=== PATIENT | female | born 1965 | race African-American/Black ===

== ENCOUNTER 2016-08-27 11:02 | Emergency (ER) | payer OTHER ==
[~2016-08-27 11:02] MED LIST: LEVO125T5 PO
--- NOTE | 2016-08-27 11:48 | RAD ---
Right knee with patella, 4 views, 08/27/2016: History: Knee pain No fracture or dislocation is identified. There is mild spurring medially at the knee joint as well as at the patellofemoral articulation. The periarticular soft tissues are unremarkable. IMPRESSION: 1. Mild degenerative change. 2. No acute bony abnormality is detected.
[2016-08-27 11:55] VITALS: BP 147/79
[2016-08-27] MEDS ORDERED: NAPROXEN 500 MG TABLET PO STA (12:03)
[2016-08-27] MEDS ORDERED: HYDR-971 PO (12:10)
[2016-08-27] MEDS ORDERED: METH4TAB2 PO (12:10)
[2016-08-27] MEDS ORDERED: NAPR375T3 PO (12:10)
--- NOTE | 2016-08-27 12:11 | PHYS DOC ---
Past Medical History Past Medical History: Arthritis, Hypothyroid Past Surgical History: Hysterectomy Alcohol Use: Occasionally Drug Use: None Adult General Chief Complaint Chief Complaint: KNEE INJURY HPI HPI Patient is a 51 year old female with history of arthritis and hypothyroidism who presents today with moderate right knee pain generalized in nature worse on ambulation that began 3 weeks ago, patient denies any known injury. Review of Systems Review of Systems Constitutional: Denies fever or chills [] Musculoskeletal: Right knee pain Integument: Denies rash or skin lesions [] Neurologic: Denies headache, focal weakness or sensory changes [] Endocrine: Denies polyuria or polydipsia [] Allergies Allergies Allergies Coded Allergies Type Severity Reaction Last Updated Verified No Known Drug Allergies 09/18/15 No Physical Exam Physical Exam Constitutional: Well developed, well nourished, no acute distress, non-toxic appearance. [] Skin: Warm, dry, no erythema, no rash. [] Back: No tenderness, no CVA tenderness. [] Extremities: Right knee with no obvious edema and obvious ecchymosis, diffuse tenderness on palpation of right anterior knee. Full range of motion to the right knee, negative Jeannie sign negative Jeannie sign negative anterior- posterior drawer sign to the right knee. +2 right pedal pulse. Cap refill less than 2 seconds the right lower extremity. Sensation intact to the right lower extremity. Neurologic: Alert and oriented X 3, normal motor function, normal sensory function, no focal deficits noted. [] Psychologic: Affect normal, judgement normal, mood normal. [] Current Patient Data Vital Signs Vital Signs Date Time Temp Pulse Resp B/P Pulse Ox O2 Delivery O2 Flow Rate FiO2 08/27/16 11:55 97.8 102 18 97 Room Air 97.8 EKG EKG [] Radiology/Procedures Radiology/Procedures [] Course & Med Decision Making Course & Med Decision Making Pertinent Labs and Imaging studies reviewed. (See chart for details) Patient is in the ED with right knee pain for 3 weeks no known injury. Right knee x-rays interpreted by radiologist 4 views are noted for DJD of the right knee otherwise no acute findings. Immobilizer was applied to the right knee by the underwriting technician, neurovascular exam done by me is normal, cap refill < 2 seconds. Ice and elevation encouraged. Follow-up with ortho in one week. Note for work provided for 3 days. Dragon Disclaimer Dragon Disclaimer This electronic medical record was generated, in whole or in part, using a voice recognition dictation system. Departure Departure Impression: Primary Impression: DJD (degenerative joint disease) of knee Disposition: 01 HOME, SELF-CARE Condition: STABLE Referrals: LEE ANN ROSALES MD (PCP) LEONOR BERMUDEZ MD see her in the next 7 days Patient Instructions: Arthritis, Degenerative-Brief Additional Instructions: You were seen for right knee pain, your x-ray shows you have degenerative joint disease of the right knee. Wear the brace as tolerated, keep the knee iced and elevated as tolerated. Follow-up with the provided orthopedic doctor in a week if pain continues. Scripts Hydrocodone/Apap 5-325 ([place] 5-325 Tablet)1 Each Tablet1-2 Tab PO Q4-6HRS #14 TAB Prov:KODY OSWALD APRN 08/27/16 Naproxen 375 Mg Tablet1 Tab PO BID #60 TAB Ref 5 Prov:KODY OSWALD APRN 08/27/16 Methylprednisolone (Medrol)4 Mg Tab.ds.pk1 Pkg PO UD #1 PKG Prov:KODY OSWALD APRN 08/27/16 Problem Qualifiers Primary Impression: DJD (degenerative joint disease) of knee Osteoarthritis type: unspecified Laterality: right Qualified Code: M17.9 - Osteoarthritis of knee, unspecified KODY OSWALD APRN Aug 27, 2016 12:11
[2016-08-27] MEDS ORDERED: HYDROCODONE/APAP 5/325MG TABLET. PO ONE (12:15)
== END 2016-08-27 12:29 | disposition home or self-care (01) ==
LOC: ER 11:02
DX: M17.9 Osteoarthritis of knee, unspecified (principal); E03.9 Hypothyroidism, unspecified; Z90.710 Acquired absence of both cervix and uterus
CPT/HCPCS: 29505; 73564; 99284-25

== ENCOUNTER → 2016-11-19 | Outpatient (CLI) | payer OTHER ==
[~2016-11-19] MED LIST changes: +HYDR-971 PO; +METH4TAB2 PO; +NAPR375T3 PO
--- NOTE | 2016-11-19 16:15 | KCIC ---
PROCEDURE MR of the right knee HISTORY Acute pain since June 2016. Swelling. No known injury. TECHNIQUE Standard noncontrast images are obtained. COMPARISON None FINDINGS Mild signal irregularity along the undersurface of the medial meniscus and mild signal extending to the posterior root, compatible with a mild degenerative tear. No evidence of a lateral meniscal tear. The anterior and posterior cruciate ligaments are intact. Medial collateral ligament intact. Iliotibial band unremarkable. Fibular collateral ligament, biceps femoris tendon and popliteus tendon are intact. Extensor mechanism is intact. Small joint effusion. No evidence of osteochondral loose body. Trace fluid in the popliteal fossa. There is mild edema within the popliteus muscle. Severe chondromalacia at medial joint compartment. Minimal subchondral marrow edema at the medial femoral condyle. Severe chondromalacia at the patella. No aggressive bone destruction or acute fracture. IMPRESSION 1. Mild degenerative tear of the medial meniscus. 2. Primary osteoarthritis, most severe at the medial compartment and at the patella. Electronically signed by: Edmund Mullins MD (Nov 19, 2016 16:13:07)
== END | disposition home or self-care (01) ==
LOC: KCIC MRI 15:15
PROVIDERS: ATTEND Orthopaedic Surgery
DX: M25.561 Pain in right knee (principal)
CPT/HCPCS: 73721

== ENCOUNTER → 2016-12-23 | Outpatient (CLI) | payer OTHER ==
[2016-12-23 09:47] LABS: BASO # 0.1 x10^3/uL (0.0-0.2); BASO % 1 % (0-3); EOS % 0 % (0-3); HEMATOCRIT 35.3 % (36.0-47.0); LYMPH # 4.2 x10^3/uL (1.0-4.8); LYMPH % 43 % (24-48); MEAN CORPUSCULAR HEMOGLOBIN 29 pg (25-35); MEAN CORPUSCULAR HGB CONC 34 g/dL (31-37); MEAN CORPUSCULAR VOLUME 84 fL (79-100); MONO % 8 % (0-9); NEUT % 48 % (31-73); PLATELET COUNT 454 x10^3/uL (140-400); RED BLOOD COUNT 4.19 x10^6/uL (3.50-5.40); RED CELL DISTRIBUTION WIDTH 13.9 % (11.5-14.5); WHITE BLOOD COUNT 9.7 x10^3/uL (4.0-11.0)
[2016-12-23 09:49] LABS: % SAT IRON 17 % (15-34); IRON,SERUM 66 ug/dL (50-170)
[2016-12-23 09:59] LABS: FREE T4 1.51 ng/dL (0.76-1.46)
[2016-12-23 11:14] LABS: VITAMIN-B12 877 pg/mL (247-911)
[2016-12-23 11:26] LABS: FOLATE > 24.00 ng/ml (3.2-20.0)
== END | disposition home or self-care (01) ==
LOC: LAB 09:05
PROVIDERS: ATTEND Nurse Practitioner
DX: E03.9 Hypothyroidism, unspecified (principal); D64.9 Anemia, unspecified
CPT/HCPCS: 36415; 82607; 82728; 82746; 83540; 83550; 84439; 84443; 85027

== ENCOUNTER → 2017-01-22 | Outpatient (CLI) | payer OTHER ==
[2017-01-22 12:37] LABS: FREE T4 1.48 ng/dL (0.76-1.46)
== END | disposition home or self-care (01) ==
LOC: LAB 11:58
PROVIDERS: ATTEND Nurse Practitioner
DX: E03.9 Hypothyroidism, unspecified (principal)
CPT/HCPCS: 36415; 84439; 84443

== ENCOUNTER → 2017-03-25 | Outpatient (CLI) | payer OTHER ==
[2017-03-25 13:21] LABS: FREE T4 1.22 ng/dL (0.76-1.46)
== END | disposition home or self-care (01) ==
LOC: LAB 12:19
PROVIDERS: ATTEND Nurse Practitioner
DX: E03.9 Hypothyroidism, unspecified (principal)
CPT/HCPCS: 36415; 84439; 84443

== ENCOUNTER → 2017-06-12 | Outpatient (CLI) | payer OTHER ==
[~2017-06-12] MED LIST changes: +NAPR-695 PO; -NAPR375T3 PO
--- NOTE | 2017-06-12 12:32 | RAD ---
DATE: 06/12/2017. EXAM: DIGITAL SCREEN BILAT W/CAD. HISTORY: Routine mammographic screening. COMPARISON: 09/05/2015. This study was interpreted with the benefit of Computerized Aided Detection (CAD). FINDINGS: The breast parenchyma shows scattered fibroglandular densities. Breast parenchyma level B. There are new small circumscribed or partially obscured nodules laterally on the right CC view and inferiorly on the right MLO view. Other small nodules on the right appear stable and benign. Scattered calcifications are benign. There is no suspicious finding on the left. BI-RADS CATEGORY: 0 INCOMPLETE: NEEDS ADDITIONAL IMAGING EVALUATION AND/OR PRIOR MAMMOGRAMS FOR COMPARISON.. RECOMMENDED FOLLOW-UP: ADD ADDITIONAL IMAGING. Spot compression and sonography of new small nodules laterally on the right CC view and inferiorly on the right MLO view. See annotations. PQRS compliance statement: Patient information was entered into a reminder system with a target due date (now) for the next mammogram. Mammography is a sensitive method for finding small breast cancers, but it does not detect them all and is not a substitute for careful clinical examination. A negative mammogram does not negate a clinically suspicious finding and should not result in delay in biopsying a clinically suspicious abnormality. "Our facility is accredited by the [employer] Mammography Program."
== END | disposition home or self-care (01) ==
LOC: MAMMO 08:07
PROVIDERS: ATTEND Internal Medicine
DX: Z12.31 Encounter for screening mammogram for malignant neoplasm of breast (principal)
CPT/HCPCS: G0202; 77067

== ENCOUNTER → 2017-11-10 | Outpatient (CLI) | payer OTHER ==
[2017-11-10 15:00] LABS: ADD MAN DIFF? NO
[2017-11-10 15:16] LABS: BASO # 0.1 x10^3/uL (0.0-0.2); BASO % 1 % (0-3); EOS # 0.1 x10^3/uL (0.0-0.7); EOS % 1 % (0-3); HEMATOCRIT 34.3 % (36.0-47.0); HEMOGLOBIN 11.6 g/dL (12.0-15.5); LYMPH # 5.9 x10^3/uL (1.0-4.8); LYMPH % 50 % (24-48); MEAN CORPUSCULAR HEMOGLOBIN 30 pg (25-35); MEAN CORPUSCULAR HGB CONC 34 g/dL (31-37); MEAN CORPUSCULAR VOLUME 89 fL (79-100); MONO % 9 % (0-9); NEUT # 4.7 x10^3uL (1.8-7.7); NEUT % 40 % (31-73); PLATELET COUNT 382 x10^3/uL (140-400); RED BLOOD COUNT 3.85 x10^6/uL (3.50-5.40); RED CELL DISTRIBUTION WIDTH 14.2 % (11.5-14.5); WHITE BLOOD COUNT 11.8 x10^3/uL (4.0-11.0)
[2017-11-10 15:33] LABS: ALBUMIN 3.8 g/dL (3.4-5.0); ALBUMIN/GLOBULIN RATIO 0.8 (1.0-1.7); ALK PHOS 49 U/L (46-116); ALT (SGPT) 34 U/L (14-59); ANION GAP 9 (6-14); AST (SGOT) 25 U/L (15-37); BLOOD UREA NITROGEN 12 mg/dL (7-20); BUN/CREATININE RATIO 20 (6-20); CARBON DIOXIDE 27 mmol/L (21-32); CHLORIDE 104 mmol/L (98-107); CREATININE 0.6 mg/dL (0.6-1.0); GLUCOSE 88 mg/dL (70-99); POTASSIUM 3.2 mmol/L (3.5-5.1); SODIUM 140 mmol/L (136-145); TOTAL BILIRUBIN 0.2 mg/dL (0.2-1.0); TOTAL PROTEIN 8.3 g/dL (6.4-8.2)
[2017-11-10 15:44] LABS: THYROID STIM HORMONE (TSH) 4.331 uIU/mL (0.358-3.74)
== END | disposition home or self-care (01) ==
LOC: LAB 14:49
DX: I10 Essential (primary) hypertension (principal); E03.9 Hypothyroidism, unspecified
CPT/HCPCS: 36415; 80053; 84439; 84443; 85025

== ENCOUNTER → 2017-11-18 | Outpatient (CLI) | payer OTHER ==
[2017-11-18 11:41] LABS: ADD MAN DIFF? NO
[2017-11-18 12:13] LABS: BASO # 0.1 x10^3/uL (0.0-0.2); BASO % 1 % (0-3); EOS % 0 % (0-3); HEMATOCRIT 36.9 % (36.0-47.0); HEMOGLOBIN 12.3 g/dL (12.0-15.5); LYMPH # 4.5 x10^3/uL (1.0-4.8); LYMPH % 49 % (24-48); MEAN CORPUSCULAR HEMOGLOBIN 30 pg (25-35); MEAN CORPUSCULAR HGB CONC 33 g/dL (31-37); MEAN CORPUSCULAR VOLUME 90 fL (79-100); MONO # 0.8 x10^3/uL (0.0-1.1); MONO % 9 % (0-9); NEUT # 3.8 x10^3uL (1.8-7.7); NEUT % 41 % (31-73); PLATELET COUNT 372 x10^3/uL (140-400); RED CELL DISTRIBUTION WIDTH 13.9 % (11.5-14.5); WHITE BLOOD COUNT 9.2 x10^3/uL (4.0-11.0)
[2017-11-18 12:30] LABS: ANION GAP 8 (6-14); BLOOD UREA NITROGEN 12 mg/dL (7-20); CALCIUM 8.9 mg/dL (8.5-10.1); CARBON DIOXIDE 30 mmol/L (21-32); CHLORIDE 102 mmol/L (98-107); CREATININE 0.7 mg/dL (0.6-1.0); GFR 106.3; GLUCOSE 90 mg/dL (70-99); SODIUM 140 mmol/L (136-145)
== END | disposition home or self-care (01) ==
LOC: LAB 11:29
DX: E87.6 Hypokalemia (principal); D72.829 Elevated white blood cell count, unspecified; R31.9 Hematuria, unspecified
CPT/HCPCS: 36415; 80048; 85025; 87086

== ENCOUNTER → 2017-12-02 | Outpatient (CLI) | payer OTHER ==
[2017-12-02 15:02] LABS: BASO # 0.1 x10^3/uL (0.0-0.2); BASO % 1 % (0-3); EOS % 0 % (0-3); HEMATOCRIT 36.5 % (36.0-47.0); HEMOGLOBIN 12.1 g/dL (12.0-15.5); LYMPH # 5.2 x10^3/uL (1.0-4.8); LYMPH % 49 % (24-48); MEAN CORPUSCULAR HEMOGLOBIN 30 pg (25-35); MEAN CORPUSCULAR HGB CONC 33 g/dL (31-37); MEAN CORPUSCULAR VOLUME 90 fL (79-100); MONO # 0.7 x10^3/uL (0.0-1.1); MONO % 6 % (0-9); NEUT # 4.7 x10^3uL (1.8-7.7); NEUT % 44 % (31-73); PLATELET COUNT 395 x10^3/uL (140-400); RED BLOOD COUNT 4.05 x10^6/uL (3.50-5.40); WHITE BLOOD COUNT 10.8 x10^3/uL (4.0-11.0)
[2017-12-02 15:04] LABS: ADD MAN DIFF? YES
[2017-12-02 15:37] LABS: % SAT IRON 14 % (15-34); IRON,SERUM 49 ug/dL (50-170)
[2017-12-02 15:47] LABS: ALBUMIN 3.8 g/dL (3.4-5.0); ALBUMIN/GLOBULIN RATIO 0.8 (1.0-1.7); ALK PHOS 57 U/L (46-116); ALT (SGPT) 38 U/L (14-59); ANION GAP 10 (6-14); AST (SGOT) 37 U/L (15-37); BLOOD UREA NITROGEN 13 mg/dL (7-20); BUN/CREATININE RATIO 19 (6-20); CALCIUM 8.9 mg/dL (8.5-10.1); CARBON DIOXIDE 28 mmol/L (21-32); CHLORIDE 105 mmol/L (98-107); CHOLESTEROL 143 mg/dL (0-200); CREATININE 0.7 mg/dL (0.6-1.0); FERRITIN 26 ng/mL (8-252); GFR 106.3; GLUCOSE 106 mg/dL (70-99); HDLC 49 mg/dL (40-60); LDLC 59 mg/dL (0-100); NON-HDL CHOLESTEROL 94 mg/dL (0-129); POTASSIUM 3.5 mmol/L (3.5-5.1); SODIUM 143 mmol/L (136-145); TOTAL BILIRUBIN 0.2 mg/dL (0.2-1.0); TOTAL PROTEIN 8.5 g/dL (6.4-8.2); TRIGLYCERIDES 173 mg/dL (0-150); VLDLC 35 mg/dL (0-40)
[2017-12-02 15:49] LABS: CHOLESTEROL/HDL RATIO 2.9
[2017-12-02 15:51] LABS: FREE T4 1.03 ng/dL (0.76-1.46)
[2017-12-02 16:23] LABS: % EOS 1 % (0-5); % LYMPHS 45 % (24-48); % MONOS 8 % (0-10); % SEGS 46 % (35-66); PLT ESTIMATE ADEQUATE (ADEQUATE); POIKILOCYTOSIS SLIGHT
[2017-12-02 16:25] LABS: ACANTHOCYTES OCC; HOWELL-JOLLY BODIES PRESENT; SCHISTOCYTES OCC
[2017-12-02 17:26] LABS: VITAMIN-B12 843 pg/mL (247-911)
[2017-12-02 17:27] LABS: FOLATE 17.31 ng/ml (3.2-20.0)
== END | disposition home or self-care (01) ==
LOC: LAB 14:37
DX: E78.2 Mixed hyperlipidemia (principal); D64.9 Anemia, unspecified; E03.9 Hypothyroidism, unspecified; D72.829 Elevated white blood cell count, unspecified; R53.83 Other fatigue
CPT/HCPCS: 36415; 80053; 80061; 82607; 82728; 82746; 83540; 83550; 84439; 84443; 85007; 85025

== ENCOUNTER → 2017-12-09 | Day surgery (SDC) | payer OTHER ==
[~2017-12-09] MED LIST changes: -HYDR-971 PO; -LEVO125T5 PO; +LIDOCAINE 1% PF 2 ML VIAL. ID; -METH4TAB2 PO; +MORPHINE SULFATE 4 MG/ML DISP.SYRIN. IV; -NAPR-695 PO; +ONDANSETRON PF 4 MG/2 ML VIAL. IV; +PROCHLORPERAZINE 10 MG/2 ML VIAL. IV; +PROPOFOL 20 ML IV; +fentaNYL PF VIAL 100 MCG/2 ML VIAL IV
[2017-12-09] MEDS: IV RINGERS,LACTATED 1000ML 1,000 ML IV (07:27)
== END ==
LOC: ENDOS 06:56
DX: K92.2 Gastrointestinal hemorrhage, unspecified (principal); D50.0 Iron deficiency anemia secondary to blood loss (chronic); E03.9 Hypothyroidism, unspecified; I15.9 Secondary hypertension, unspecified; M17.11 Unilateral primary osteoarthritis, right knee; J30.9 Allergic rhinitis, unspecified; Z90.710 Acquired absence of both cervix and uterus; Z98.890 Other specified postprocedural states
CPT/HCPCS: 43235; J2704

== ENCOUNTER → 2018-05-05 | Outpatient (CLI) | payer OTHER ==
[2017-12-09 08:42] VITALS: BP 152/85
[~2018-05-05] MED LIST changes: +HYDR-971 PO; +LEVO125T5 PO; -LIDOCAINE 1% PF 2 ML VIAL. ID; +LISI10TA2 PO; +METH4TAB2 PO; -MORPHINE SULFATE 4 MG/ML DISP.SYRIN. IV; +NAPR-695 PO; +OMEG1CAP6 PO; -ONDANSETRON PF 4 MG/2 ML VIAL. IV; -PROCHLORPERAZINE 10 MG/2 ML VIAL. IV; -PROPOFOL 20 ML IV; -fentaNYL PF VIAL 100 MCG/2 ML VIAL IV
[2018-05-05 15:28] LABS: BASO # 0.1 x10^3/uL (0.0-0.2); BASO % 1 % (0-3); EOS # 0.1 x10^3/uL (0.0-0.7); EOS % 1 % (0-3); HEMATOCRIT 36.2 % (36.0-47.0); HEMOGLOBIN 12.4 g/dL (12.0-15.5); LYMPH # 4.5 x10^3/uL (1.0-4.8); LYMPH % 45 % (24-48); MEAN CORPUSCULAR HEMOGLOBIN 31 pg (25-35); MEAN CORPUSCULAR HGB CONC 34 g/dL (31-37); MEAN CORPUSCULAR VOLUME 90 fL (79-100); MONO # 0.8 x10^3/uL (0.0-1.1); MONO % 8 % (0-9); NEUT # 4.6 x10^3uL (1.8-7.7); NEUT % 46 % (31-73); PLATELET COUNT 387 x10^3/uL (140-400); RED BLOOD COUNT 4.03 x10^6/uL (3.50-5.40); RED CELL DISTRIBUTION WIDTH 13.4 % (11.5-14.5); WHITE BLOOD COUNT 10.1 x10^3/uL (4.0-11.0)
[2018-05-05 15:52] LABS: ALBUMIN 3.9 g/dL (3.4-5.0); ALBUMIN/GLOBULIN RATIO 0.8 (1.0-1.7); CALCIUM 9.2 mg/dL (8.5-10.1); CREATININE 0.7 mg/dL (0.6-1.0); GFR 106.3; POTASSIUM 3.5 mmol/L (3.5-5.1); TOTAL BILIRUBIN 0.1 mg/dL (0.2-1.0); TOTAL PROTEIN 8.6 g/dL (6.4-8.2)
[2018-05-06 06:23] LABS: HEMOGLOBIN A1C 5.4 % (4.8-5.6)
== END | disposition home or self-care (01) ==
LOC: LAB 15:06
PROVIDERS: ATTEND Internal Medicine
DX: I10 Essential (primary) hypertension (principal); R73.09 Other abnormal glucose; E78.2 Mixed hyperlipidemia; M17.11 Unilateral primary osteoarthritis, right knee; E66.9 Obesity, unspecified; E03.9 Hypothyroidism, unspecified; Z90.710 Acquired absence of both cervix and uterus; Z86.2 Personal history of diseases of the blood and blood-forming organs and certain disorders involving the immune mechanism
CPT/HCPCS: 36415; 80053; 83036; 83735; 85025

== ENCOUNTER → 2018-06-02 | Outpatient (CLI) | payer OTHER ==
[2017-12-09 08:42] VITALS: BP 152/85
== END | disposition home or self-care (01) ==
LOC: LAB 13:59
PROVIDERS: ATTEND Internal Medicine
DX: E87.6 Hypokalemia (principal)
CPT/HCPCS: 36415; 84132

== ENCOUNTER → 2019-05-18 | Outpatient (CLI) | payer OTHER ==
[2017-12-09 08:42] VITALS: BP 152/85
[~2019-05-18] MED LIST changes: +HYDR-3164 PO; -HYDR-971 PO
[2019-05-18 08:41] LABS: BASO # 0.1 x10^3/uL (0.0-0.2); BASO % 1 % (0-3); EOS % 1 % (0-3); HEMATOCRIT 36.7 % (36.0-47.0); HEMOGLOBIN 12.4 g/dL (12.0-15.5); LYMPH # 3.9 x10^3/uL (1.0-4.8); LYMPH % 44 % (24-48); MEAN CORPUSCULAR HEMOGLOBIN 29 pg (25-35); MEAN CORPUSCULAR HGB CONC 34 g/dL (31-37); MEAN CORPUSCULAR VOLUME 86 fL (79-100); MONO # 0.8 x10^3/uL (0.0-1.1); MONO % 9 % (0-9); NEUT # 4.1 x10^3/uL (1.8-7.7); NEUT % 46 % (31-73); PLATELET COUNT 407 x10^3/uL (140-400); RED BLOOD COUNT 4.26 x10^6/uL (3.50-5.40); RED CELL DISTRIBUTION WIDTH 14.2 % (11.5-14.5); WHITE BLOOD COUNT 8.9 x10^3/uL (4.0-11.0)
[2019-05-18 09:04] LABS: ALBUMIN 4.1 g/dL (3.4-5.0); ALBUMIN/GLOBULIN RATIO 0.9 (1.0-1.7); CALCIUM 9.4 mg/dL (8.5-10.1); CREATININE 0.8 mg/dL (0.6-1.0); GFR 90.8; POTASSIUM 3.4 mmol/L (3.5-5.1); TOTAL BILIRUBIN 0.3 mg/dL (0.2-1.0); TOTAL PROTEIN 8.7 g/dL (6.4-8.2)
[2019-05-18 09:05] LABS: CHOLESTEROL/HDL RATIO 3.7
[2019-05-18 09:14] LABS: FREE T4 0.7 ng/dL (0.76-1.46); THYROID STIM HORMONE (TSH) 12.833 uIU/mL (0.358-3.74)
[2019-05-18 23:07] LABS: HEMOGLOBIN A1C 6.1 % (4.8-5.6)
== END | disposition home or self-care (01) ==
LOC: LAB 08:21
PROVIDERS: ATTEND Internal Medicine
DX: E78.2 Mixed hyperlipidemia (principal); E03.9 Hypothyroidism, unspecified; I10 Essential (primary) hypertension
CPT/HCPCS: 36415; 80053; 80061; 83036; 84439; 84443; 85025

== ENCOUNTER → 2019-09-14 | Outpatient (CLI) | payer OTHER ==
[2017-12-09 08:42] VITALS: BP 152/85
[2019-09-14 11:54] LABS: FREE T4 1.34 ng/dL (0.76-1.46); THYROID STIM HORMONE (TSH) 0.574 uIU/mL (0.358-3.74)
== END | disposition home or self-care (01) ==
LOC: LAB 11:13
PROVIDERS: ATTEND Internal Medicine
DX: E03.9 Hypothyroidism, unspecified (principal)
CPT/HCPCS: 36415; 84439; 84443